=== PATIENT | female | born 1980 | race Caucasian/White ===

== ENCOUNTER 2021-11-08 18:02 | Emergency (ER) | payer SELFPAY ==
[~2021-11-08] VITALS: Ht 154.9 cm; Wt 72.7 kg
[2021-11-08 18:23] VITALS: TEMP 98.3
[2021-11-08 19:04] LABS: COLLECTION METHOD CLEAN CATCH
[2021-11-08 19:15] LABS: BASO % 0.3 % (0.0-2.0); GRAN # 5.5 K/mm3 (1.4-6.5); GRAN % 84.3 % (42.2-75.2); LYMPH # 0.5 K/mm3 (1.2-3.4); LYMPH % 8.2 % (20.0-51.0); MEAN CELL VOLUME 61 fl (80.0-100.0); MEAN CORPUSCULAR HGB CONC 29 g/dl (33.0-37.0); MEAN PLATELET VOLUME 10.9 fl (7.4-10.4); MONO # 0.4 K/mm3 (0.1-0.6); MONO % 6.7 % (1.7-9.3); PLATELET COUNT 297 K/mm3 (130-400); REDCELL DISTRIBUTION WIDTH-CV 19.3 % (11.5-14.5)
[2021-11-08 19:20] LABS: HEMATOCRIT 26.9 % (37.0-47.0); HEMOGLOBIN 7.7 g/dl (12.5-16.0); MEAN CORPUSCULAR HEMOGLOBIN 18 pg (27-31)
[2021-11-08 19:20] LABS: PH 6 (5-8); SQUAMOUS EPITHELIAL 0-2 /hpf (0-10); URINE APPEARANCE Clear (CLEAR/HAZY); URINE BACTERIA Rare /hpf (NONE SEEN); URINE BILIRUBIN Negative (NEGATIVE); URINE BLOOD 2+ (NEGATIVE); URINE COLOR Straw (YELLOW); URINE GLUCOSE Negative (NEGATIVE); URINE KETONE Negative (NEGATIVE); URINE LEUKOCYTE ESTERASE 1+ (NEGATIVE); URINE NITRATE Negative (NEGATIVE); URINE PROTEIN(semi-quant) Negative (NEGATIVE); URINE RBC 0-2 /hpf (0-2); URINE UROBILINOGEN Negative (NEGATIVE)
[2021-11-08 19:26] LABS: ALBUMIN 3.7 gm/dL (3.5-5.0); BILIRUBIN,TOTAL 0.6 mg/dL (0.2-1.2); CALCIUM 8.5 mg/dL (8.4-10.2); CREATININE, serum 1.02 mg/dL (0.57-1.11); TOTAL PROTEIN 7.4 gm/dL (6.2-8.1)
[2021-11-08 19:29] LABS: POTASSIUM 2.9 mmol/L (3.5-4.5)
[2021-11-08] MEDS ORDERED: ZOFRAN ODT4 MG PO (21:04)
[2021-11-08] MEDS ORDERED: K-DUR20 MEQ PO (21:04)
[2021-11-08] MEDS ORDERED: CEFTIN 250250 MG/TAB PO (21:04)
[2021-11-08] MEDS ORDERED: PRINZIDE 12.5 M1 TAB PO (21:04)
[2021-11-08 21:27] VITALS: BP 143/101; PULSE 78
== END 2021-11-08 21:27 | disposition home or self-care (01) ==
LOC: COL.ER 18:02
PROVIDERS: Nurse Practitioner
DX: N39.0 Urinary tract infection, site not specified (principal); D64.9 Anemia, unspecified; E87.6 Hypokalemia; Z20.822 Contact with and (suspected) exposure to COVID-19; Z28.310 Unvaccinated for COVID-19
CPT/HCPCS: J0696; J2405; J7030

== ENCOUNTER 2021-11-27 09:02 | Emergency (ER) | payer SELFPAY ==
[~2021-11-27] VITALS: Ht 154.9 cm; Wt 72.7 kg
[~2021-11-27 09:02] MED LIST: CEFTIN 250250 MG/TAB PO; K-DUR20 MEQ PO; PRINZIDE 12.5 M1 TAB PO; ZOFRAN ODT4 MG PO
[2021-11-27 09:12] VITALS: TEMP 97.8
[2021-11-27 10:14] LABS: COLLECTION METHOD CLEAN CATCH
[2021-11-27 10:26] LABS: MUCOUS Present (NOT PRESENT); PH 5 (5-8); SQUAMOUS EPITHELIAL 0-2 /hpf (0-10); URINE APPEARANCE Hazy (CLEAR/HAZY); URINE BACTERIA Occasional /hpf (NONE SEEN); URINE BILIRUBIN Negative (NEGATIVE); URINE BLOOD Negative (NEGATIVE); URINE COLOR Yellow (YELLOW); URINE GLUCOSE Negative (NEGATIVE); URINE KETONE Negative (NEGATIVE); URINE LEUKOCYTE ESTERASE Trace (NEGATIVE); URINE NITRATE Positive (NEGATIVE); URINE PROTEIN(semi-quant) Negative (NEGATIVE); URINE RBC 0-2 /hpf (0-2); URINE UROBILINOGEN Negative (NEGATIVE); URINE WBC 20-50 /hpf (0-2)
[2021-11-27 10:28] LABS: BASO # 0.1 K/mm3 (0.0-0.2); BASO % 0.7 % (0.0-2.0); EOS # 0.1 K/mm3 (0.0-0.7); EOS % 1.3 % (0.0-4.0); GRAN # 5.3 K/mm3 (1.4-6.5); LYMPH # 0.8 K/mm3 (1.2-3.4); LYMPH % 11.7 % (20.0-51.0); MEAN CELL VOLUME 61 fl (80.0-100.0); MEAN CORPUSCULAR HGB CONC 28 g/dl (33.0-37.0); MONO # 0.5 K/mm3 (0.1-0.6); PLATELET COUNT 350 K/mm3 (130-400); RED BLOOD COUNT 5.18 M/mm3 (4.10-5.30); REDCELL DISTRIBUTION WIDTH-CV 19.8 % (11.5-14.5)
[2021-11-27 10:30] LABS: HEMATOCRIT 31.8 % (37.0-47.0); HEMOGLOBIN 8.9 g/dl (12.5-16.0); MEAN CORPUSCULAR HEMOGLOBIN 17 pg (27-31)
[2021-11-27 10:38] LABS: BILIRUBIN,TOTAL 0.6 mg/dL (0.2-1.2); CREATININE, serum 0.86 mg/dL (0.57-1.11); POTASSIUM 3.8 mmol/L (3.5-4.5); TOTAL PROTEIN 7.8 gm/dL (6.2-8.1)
[2021-11-27 10:54] LABS: ERYTHROCYTE SEDIMENTATION RATE 6 mm/hr (0-20)
[2021-11-27] MEDS ORDERED: PRINZIDE 25 MG-1 TAB PO (11:04)
[2021-11-27] MEDS ORDERED: LEVAQUIN 750MG750 M1 PO (11:04)
[2021-11-27 11:21] VITALS: BP 182/111; PULSE 77
== END 2021-11-27 11:21 | disposition home or self-care (01) ==
LOC: COL.ER 09:02
PROVIDERS: Emergency Medicine
DX: N39.0 Urinary tract infection, site not specified (principal); I10 Essential (primary) hypertension; Z20.822 Contact with and (suspected) exposure to COVID-19

== ENCOUNTER 2023-07-03 23:10 | Emergency (ER) | payer OTHER ==
[~2023-07-03] VITALS: Ht 154.9 cm; Wt 86.4 kg
[~2023-07-03 23:10] MED LIST changes: +AMOXICILLIN 8751 TAB PO; +DIFLUCAN 100MG100 MG PO; +DOXYCYCLINE HY100 MG PO; +LEVAQUIN 750MG750 M1 PO; +PRINZIDE 25 MG-1 TAB PO
[2023-07-03 23:32] VITALS: TEMP 98.1
[2023-07-04] MEDS ORDERED: NORCO 325 MG-51 TAB PO (00:22)
[2023-07-04] MEDS ORDERED: AMOXICILLIN 50500 MG PO (00:22)
[2023-07-04] MEDS ORDERED: Home HYDROcodone/Acetaminophen 5/325 MG #4 TABS/PACK PO ONE (00:30)
[2023-07-04] MEDS ORDERED: Amoxicillin 500 MG CAP PO ONE (00:30)
[2023-07-04 00:50] VITALS: BP 145/99; PULSE 80
== END 2023-07-04 00:55 | disposition home or self-care (01) ==
LOC: COL.ER 23:10
DX: S93.402A Sprain of unspecified ligament of left ankle, initial encounter (principal); K02.9 Dental caries, unspecified; V43.52XA Car driver injured in collision with other type car in traffic accident, initial encounter; Y92.410 Unspecified street and highway as the place of occurrence of the external cause